=== PATIENT | female | born 1990 | race African-American/Black ===

== ENCOUNTER 2021-05-06 09:47 | Outpatient (CLI) | payer OTHER ==
[2021-05-06 10:24] LABS: BHCG - Serum Negative (NEGATIVE); Pregs Control Background? CLEAR/WHITE (CLR/WHITE); Pregs Control Bar Appear? YES (CONTROL BAR)
== END 2021-05-06 09:48 | disposition home or self-care (01) ==
LOC: RAD 09:47
PROVIDERS: ATTEND Obstetrics & Gynecology Reproductive Endocrinology
DX: N97.1 Female infertility of tubal origin (principal)
CPT/HCPCS: 36415; 58340; 74740; 84703